=== PATIENT | male | born 1990 | race Caucasian/White ===

== ENCOUNTER 2021-06-20 12:59 | Emergency (ER) | payer BC, OTHER ==
[2021-06-20 15:22] LABS: CORONAVIRUS COVID-19 NAA POSITIVE (NEGATIVE); INFLUENZA A NAA NEGATIVE (NEGATIVE); INFLUENZA B NAA NEGATIVE (NEGATIVE)
== END 2021-06-20 16:04 | disposition home or self-care (01) ==
LOC: MW.ED 12:59
DX: U07.1 COVID-19 (principal)
CPT/HCPCS: 0240U; 99283

== ENCOUNTER 2025-02-12 20:30 | Emergency (ER) | payer BC ==
[2025-02-12] MEDS: Ketorolac 60 MG/2 ML SDV IM ONE (21:15)
[2025-02-12] MEDS: Orphenadrine 60 MG/2 ML Inj IM ONE (21:16)
== END 2025-02-12 22:23 | disposition home or self-care (01) ==
LOC: MW.ED 20:30
DX: S39.012A Strain of muscle, fascia and tendon of lower back, initial encounter (principal); Z88.8 Allergy status to other drugs, medicaments and biological substances; X50.0XXA Overexertion from strenuous movement or load, initial encounter; Y93.89 Activity, other specified
CPT/HCPCS: 72131; 96372; 99283; J1885; J2360